=== PATIENT | female | born 2000 | race Two or more races ===

== ENCOUNTER 2022-08-27 14:15 | Emergency (ER) | payer MEDICAID, OTHER ==
[2022-08-27] MEDS ORDERED: AZIT200S47 PO (19:25)
[2022-08-27] MEDS ORDERED: ACET160S68 PO (19:25)
[2022-08-27] MEDS ORDERED: CLOB10TA2 PO (19:25)
[2022-08-27 20:24] VITALS: BP 91/58
== END 2022-08-27 20:26 | disposition home or self-care (01) ==
LOC: ER 14:15
DX: J06.9 Acute upper respiratory infection, unspecified (principal); Z76.0 Encounter for issue of repeat prescription; G40.909 Epilepsy, unspecified, not intractable, without status epilepticus; G80.9 Cerebral palsy, unspecified
CPT/HCPCS: 71046